=== PATIENT | female | born 1980 | race American Indian/Alaskan Native ===

== ENCOUNTER 2016-09-14 02:19 | Emergency (ER) | payer MEDICAID ==
[2016-09-14 02:43] VITALS: BP 138/75
== END 2016-09-14 02:35 | disposition left against medical advice (07) ==
LOC: ED 02:19
DX: J34.89 Other specified disorders of nose and nasal sinuses (principal); R51 Headache; R52 Pain, unspecified; Z53.21 Procedure and treatment not carried out due to patient leaving prior to being seen by health care provider